=== PATIENT | male | born 1980 | race Caucasian/White ===

== ENCOUNTER 2017-06-08 21:56 | Emergency (ER) | payer OTHER ==
[2017-06-08 22:07] VITALS: BP 142/89; PULSE 74; TEMP 98.8; BMI 25.8
[2017-06-08] MEDS ORDERED: DIPHTH,PERTUSS(ACELL),TET 0.5 ML DISP.SYRIN IM ONE (22:22)
--- NOTE | 2017-06-08 22:27 | PDOC ---
History of Present Illness - General Chief Complaint: Laceration Stated Complaint: LACERATION TO FOREHEAD Time Seen by Provider: 06/08/17 22:17 - History of Present Illness Initial Comments: 06/08/17 22:24 36 M with no PMH presents to ER with laceration to L forehead after bumping his head on a cabinet while washing dishes. He denies LOC. Denies BLANK/N/V. Denies neck pain. Denies injury to any other part of his body. Does not know when last tetanus was. Past History - Past Medical History Allergies/Adverse Reactions: Allergies Allergy/AdvReac Type Severity Reaction Status Date / Time No Known Allergies Allergy Verified 06/08/17 21:58 Home Medications: Ambulatory Orders NK [No Known Home Medication] 06/20/14 COPD: No - Suicide/Smoking/Psychosocial Hx Smoking History: Current every day smoker Number of Cigarettes Smoked Daily: 10 Information on smoking cessation initiated: Yes 'Breaking Loose' booklet given: 06/08/17 Hx Alcohol Use: No Substance Use Type: None Review of Systems - Review of Systems Comments:: 06/08/17 22:25 "GENERAL/CONSTITUTIONAL: No fever or chills. No weakness. HEAD, EYES, EARS, NOSE AND THROAT: No change in vision. No ear pain or discharge. No sore throat. CARDIOVASCULAR: No chest pain or shortness of breath. RESPIRATORY: No cough, wheezing, or hemoptysis. GASTROINTESTINAL: No nausea, vomiting, diarrhea or constipation. GENITOURINARY: No dysuria, frequency, or change in urination. MUSCULOSKELETAL: No joint or muscle swelling or pain. No neck or back pain. SKIN: + laceration to forehead NEUROLOGIC: No headache, vertigo, loss of consciousness, or change in strength/ sensation. ENDOCRINE: No increased thirst. No abnormal weight change. HEMATOLOGIC/LYMPHATIC: No anemia, easy bleeding, or history of blood clots. ALLERGIC/IMMUNOLOGIC: No hives or skin allergy. " *Physical Exam - Vital Signs Last Vital Signs Temp Pulse Resp BP Pulse Ox 98.8 F 74 18 142/89 100 06/08/17 22:00 06/08/17 22:00 06/08/17 22:00 06/08/17 22:00 06/08/17 22:00 - Physical Exam Comments: 06/08/17 22:25 "GENERAL: Awake, alert, and fully oriented, in no acute distress HEAD: 2cm superficial laceration above L eyebrow EYES: PERRLA, EOMI, sclera anicteric, conjunctiva clear ENT: Auricles normal inspection, hearing grossly normal, nares patent, oropharynx clear without exudates. Moist mucosa NECK: Nontender, no stepoffs, Normal ROM, supple, no lymphadenopathy, JVD, or masses LUNGS: Breath sounds equal, clear to auscultation bilaterally. No wheezes, and no crackles HEART: Regular rate and rhythm, normal S1 and S2, no murmurs, rubs or gallops ABDOMEN: Soft, nontender, normoactive bowel sounds. No guarding, no rebound. No masses EXTREMITIES: Normal range of motion, no edema. No clubbing or cyanosis. No cords, erythema, or tenderness NEUROLOGICAL: Cranial nerves II through XII intact. 5/5 strength and sensation in all extremities, Normal speech, normal gait SKIN: Warm, Dry, normal turgor, no rashes or lesions noted. " Procedures - Laceration/Wound Repair Left Head Wound Length: to 2.5 cm Wound Explored: clean Wound's Depth, Shape: superficial Irrigated w/ Saline: Yes Progress: 06/08/17 22:56 2 cm L forehead laceration repaired with dermabond Medical Decision Making - Medical Decision Making 06/08/17 22:26 36 M with forehead laceration after bumping his head against cabinet. Pt with no LOC, no BLANK/N/V. Normal neuro exam and mentation. No indication for CT scan at this time, as mechanism was fairly minor. - Tdap - Laceration repair 06/08/17 22:56 Wound irrigated and repaired with dermabond with good approximation. *DC/Admit/Observation/Transfer Diagnosis at time of Disposition: Laceration - Discharge Dispostion Disposition: HOME Condition at time of disposition: Good - Referrals - Patient Instructions Printed Discharge Instructions: DI for Laceration Repair Additional Instructions: Keep your wound clean and dry for 24 hours. Afterwards, you may wash gently with soap and water. If you experience worsening pain, swelling, bleeding, or any other concerning symptoms, return to the ER immediately. Otherwise, follow up with your primary doctor in 1 week. - Post Discharge Activity - Attestations Physician Attestion: 06/08/17 22:57 I, Dr. Fish Fitzgerald MD, attest that this document has been prepared under my direction and personally reviewed by me in its entirety. I further attest, that it accurately reflects all work, treatment, procedures and medical decision -making performed by me.
== END 2017-06-08 23:05 | disposition home or self-care (01) ==
LOC: FER 21:56
PROC: 0HQ1XZZ Repair Face Skin, External Approach (ICD-10-PCS; principal; 2017-06-08)
PROC: 3E0234Z Introduction of Serum, Toxoid and Vaccine into Muscle, Percutaneous Approach (ICD-10-PCS; 2017-06-08)
DX: S01.81XA Laceration without foreign body of other part of head, initial encounter (principal); F17.210 Nicotine dependence, cigarettes, uncomplicated; W22.03XA Walked into furniture, initial encounter; Y93.9 Activity, unspecified; Y92.9 Unspecified place or not applicable
CPT/HCPCS: 90715; 99282-25